=== PATIENT | female | born 1960 | race Caucasian/White ===

== ENCOUNTER → 2016-06-11 | Outpatient (CLI) | payer BC ==
[~2016-06-11] MED LIST: ADVAIR 100/28 DISKUS IH; ALLEGRA 180MG180 MG PO; ALLEGRA 60MG TA60 MG PO; ASPIRIN E.C. 8181 MG PO; BYSTOLIC20 MG PO; CATAPRES 0.1MG0.1 MG PO; EFFEXOR-XR150 MG PO; FORTAMET500 M1 PO; HYZAAR 25 MG-101 TAB PO; LIPITOR 40MG TA40 MG PO; MICARDIS80 MG PO; NEXIUM 40MG40 MG PO; PROVENTIL0.09 MG/A1 IH; PROZAC 20MG20 MG PO; RT ADVAIR 228 DISKUS IH; SAXENDA6 MG/ML SQ; SINGULAIR 110 MG/TAB PO; TOPROL XL100 MG PO; VALTREX1 GM PO
== END ==
LOC: BHSO 08:52
DX: Z01.818 Encounter for other preprocedural examination (principal)

== ENCOUNTER → 2016-07-03 | Outpatient (CLI) | payer BC ==
[~2016-07-03] VITALS: Ht 157.5 cm; Wt 95.0 kg
[2016-07-03 09:42] VITALS: BP 119/57; PULSE 84
[2016-07-03 10:04] VITALS: BP 119/57; PULSE 84
== END ==
LOC: LIGHT 09:40
DX: E88.81 Metabolic syndrome and other insulin resistance (principal); E11.65 Type 2 diabetes mellitus with hyperglycemia; I10 Essential (primary) hypertension; E78.4 Other hyperlipidemia; Z68.38 Body mass index [BMI] 38.0-38.9, adult

== ENCOUNTER → 2017-03-30 | Outpatient (CLI) | payer BC | LOC: MC.RAD 15:57 | DX: Z12.31 Encounter for screening mammogram for malignant neoplasm of breast (principal) ==

== ENCOUNTER → 2017-04-16 | Outpatient (CLI) | payer BC ==
[~2017-04-16] VITALS: Ht 157.5 cm; Wt 68.7 kg
[~2017-04-16] MED LIST changes: +B-121000 MCG PO; +D-2000 90 MG-201 TAB PO; +FLINTSTONES COM1 CT1 PO
[2017-04-16 16:09] VITALS: BP 116/80; PULSE 68
== END ==
LOC: LIGHT 13:53
DX: E88.81 Metabolic syndrome and other insulin resistance (principal); E11.65 Type 2 diabetes mellitus with hyperglycemia; I10 Essential (primary) hypertension; E78.5 Hyperlipidemia, unspecified; Z68.27 Body mass index [BMI] 27.0-27.9, adult; Z71.3 Dietary counseling and surveillance

== ENCOUNTER → 2017-06-25 | Outpatient (CLI) | payer BC ==
[~2017-06-25] VITALS: Ht 157.5 cm; Wt 67.6 kg
[~2017-06-25] MED LIST changes: +PROZAC 10MG10 MG PO; -PROZAC 20MG20 MG PO
[2017-06-25 12:02] VITALS: BP 118/80; PULSE 80
== END ==
LOC: LIGHT 11:56
DX: E88.81 Metabolic syndrome and other insulin resistance (principal); E11.65 Type 2 diabetes mellitus with hyperglycemia; I10 Essential (primary) hypertension; E78.5 Hyperlipidemia, unspecified; Z68.27 Body mass index [BMI] 27.0-27.9, adult; Z71.3 Dietary counseling and surveillance
CPT/HCPCS: G0463

== ENCOUNTER → 2017-07-23 | Outpatient (CLI) | payer BC ==
[~2017-07-23] VITALS: Ht 157.5 cm; Wt 68.5 kg
[2017-07-23 16:35] VITALS: BP 144/76; PULSE 76
== END ==
LOC: LIGHT 13:45
DX: E88.81 Metabolic syndrome and other insulin resistance (principal); E11.65 Type 2 diabetes mellitus with hyperglycemia; I10 Essential (primary) hypertension; E78.5 Hyperlipidemia, unspecified; Z68.27 Body mass index [BMI] 27.0-27.9, adult; Z71.3 Dietary counseling and surveillance
CPT/HCPCS: G0463

== ENCOUNTER → 2017-09-17 | Outpatient (CLI) | payer BC ==
[~2017-09-17] VITALS: Ht 157.5 cm; Wt 69.2 kg
[~2017-09-17] MED LIST changes: +GLUCAGON EMERGEN1 M1 SQ
[2017-09-17 16:02] VITALS: BP 130/78; PULSE 72
== END ==
LOC: LIGHT 15:41
DX: E88.81 Metabolic syndrome and other insulin resistance (principal); E11.65 Type 2 diabetes mellitus with hyperglycemia; I10 Essential (primary) hypertension; E78.5 Hyperlipidemia, unspecified; Z68.27 Body mass index [BMI] 27.0-27.9, adult; Z71.3 Dietary counseling and surveillance
CPT/HCPCS: G0463

== ENCOUNTER → 2018-04-01 | Outpatient (CLI) | payer BC | LOC: MC.RAD 16:20 | DX: Z12.31 Encounter for screening mammogram for malignant neoplasm of breast (principal) ==

== ENCOUNTER 2019-09-16 10:00 | Outpatient (RCR) | payer BC ==
[2019-09-02 10:36] VITALS: BP 154/79; PULSE 71; TEMP 97.2
[2019-09-02 11:08] VITALS: BP 134/72; PULSE 69; TEMP 98.1
[2019-09-02 11:45] VITALS: BP 134/79; PULSE 64; TEMP 97.7
[~2019-09-16] VITALS: Ht 157.5 cm; Wt 72.1 kg
[~2019-09-16 10:00] MED LIST changes: +B-12 500 MCG PO; -B-121000 MCG PO; -D-2000 90 MG-201 TAB PO; +FERROUSAL325 MG PO; +GLUCOSE PO; +LIPITOR20 MG PO; +PRECOSE50 MG PO; +VITAMIN D3400 I1 PO; +VTAMINC250TA PO
[2019-09-16 10:01] VITALS: BP 135/84; PULSE 75; TEMP 97.8
== END 2019-09-16 18:00 | disposition still patient (30) ==
LOC: EUO 10:00
DX: D50.9 Iron deficiency anemia, unspecified (principal)
CPT/HCPCS: J2916

== ENCOUNTER 2019-11-11 14:53 | Outpatient (CLI) | payer BC ==
[~2019-11-11] VITALS: Ht 157.5 cm; Wt 74.9 kg
[2019-11-11 16:51] VITALS: BP 143/91; PULSE 66; TEMP 98.3
== END 2019-11-11 19:05 | disposition home or self-care (01) ==
LOC: EUO 14:53
DX: D50.9 Iron deficiency anemia, unspecified (principal)
CPT/HCPCS: J2916

== ENCOUNTER → 2020-08-30 | Outpatient (CLI) | payer BC | LOC: MC.RAD 16:52 | DX: Z12.31 Encounter for screening mammogram for malignant neoplasm of breast (principal) ==

== ENCOUNTER 2021-12-23 05:59 | Day surgery (SDC) | payer BC ==
[~2021-12-23] VITALS: Ht 157.5 cm; Wt 75.9 kg
[2021-12-23] MEDS ORDERED: ALLEGRA 180MG180 MG PO (06:43)
[2021-12-23 06:44] VITALS: BP 157/84; PULSE 67; TEMP 97.2
[2021-12-23] MEDS ORDERED: COZAAR 50MG50 MG/TAB PO (06:44)
[2021-12-23] MEDS ORDERED: PROVENTIL0.09 MG/A1 IH (07:09)
[2021-12-23 09:16] VITALS: TEMP 98.3
[2021-12-23] MEDS ORDERED: CEPHALEXIN500 M1 PO (09:34)
[2021-12-23] MEDS ORDERED: ULTRAM ER100 MG PO (09:34)
[2021-12-23] MEDS ORDERED: ASPIRIN E.C. 8181 MG PO (09:34)
[2021-12-23 10:13] VITALS: BP 165/78; PULSE 68
--- NOTE | 2021-12-23 10:13 | NUR ---
PATIENT RETURNS TO ROOM 8 PER CART FROM PACU ACCOMPANIED [facility] GAS[facility] AND IS AWAKE AND ALERT. LICO WRAP DRESSING CLEAN AND DRY ON THE LEFT KNEE WITH ICE BAG IN PLACE. FOOT WARM TO TOUCH WITH CMS INTACT. TEMP 97.2. SATS 100% ON 2L PER NASAL CANNULA. FOOT OF CART ELEVATED. SIDERAILS UP X2 AND CALL LIGHT IN REACH. SPOUSE IN THE ROOM.
[2021-12-23 10:28] VITALS: BP 161/85; PULSE 60
--- NOTE | 2021-12-23 10:28 | NUR ---
TAKING ICE CHIPS AND EATING MUFFIN. DENIES NEED FOR PAIN MEDICATIONS OR NAUSEA.
[2021-12-23 10:43] VITALS: BP 165/88; PULSE 62
--- NOTE | 2021-12-23 10:43 | NUR ---
OXYGEN REMOVED AND SATS REMAIN 100% ON ROOM AIR.
[2021-12-23 10:58] VITALS: BP 157/91; PULSE 66
--- NOTE | 2021-12-23 10:58 | NUR ---
ROOM AIR SATS 96%. AWAKE AND STATES THAT SHE IS FEELING WELL AND CONTINUES TO DENY PAIN OR NAUSEA.
--- NOTE | 2021-12-23 11:04 | NUR ---
IV TO INT. ASSISTED UP TO THE BATHROOM AND GAIT IS STEADY. TOLERATES ACTIVITY WELL. ABLE TO VOID AND RETURNS TO ROOM. STATES THAT SHE IS READY TO GO HOME.
--- NOTE | 2021-12-23 11:21 | NUR ---
IV DISCONTINUED AND SITE IS FREE OF REDNESS OR SWELLING. PATIENT DRESSES SELF. LEFT KNEE DRESSING REMAINS CLEAN AND DRY.
--- NOTE | 2021-12-23 11:32 | NUR ---
DISMISSAL INSTRUCTIONS GIVEN AND VOICES UNDERSTANDING OF THESE. PROVIDED FOLLOW UP APPOINTMENT DATE AND TIME.
--- NOTE | 2021-12-23 11:37 | NUR ---
PATIENT DISMISSED TO HOME DRIVEN BY SPOUSE AND TAKEN TO THE FRONT DOOR PER WHEELCHAIR AND ASSISTED INTO VEHICLE WITH INSTRUCTIONS IN HAND.
== END 2021-12-23 11:37 | disposition home or self-care (01) ==
LOC: SDCO 05:59
DX: M23.204 Derangement of unspecified medial meniscus due to old tear or injury, left knee (principal); M17.12 Unilateral primary osteoarthritis, left knee
CPT/HCPCS: J0171; J0690; J1100; J1170; J2405; J2704; J3010; J7120

== ENCOUNTER → 2022-11-05 | Outpatient (CLI) | payer BC ==
[~2022-11-05] MED LIST changes: +CEPHALEXIN500 M1 PO; +COZAAR 50MG50 MG/TAB PO; +ULTRAM ER100 MG PO
== END ==
LOC: MC.RAD 14:34
DX: Z12.31 Encounter for screening mammogram for malignant neoplasm of breast (principal)

== ENCOUNTER 2023-03-02 09:45 | Outpatient (RCR) | payer BC ==
[~2023-03-02 09:45] MED LIST changes: +ASPIRIN 81M81 MG/TA2 PO; -B-12 500 MCG PO; +CELEBREX 200MG200 MG PO; -COZAAR 50MG50 MG/TAB PO; +COZAAR100 MG PO; +IRON CHEWS15 MG PO; +PROBIOTIC-PREB1 EACH PO; +ULTRAM 50MG TAB50 MG PO; +VITAMIN B COMPL1 T16 PO; +VITAMIN D250 MCG PO; -VITAMIN D3400 I1 PO; +ZOFRAN ODT4 MG PO
== END 2023-03-07 | disposition home or self-care (01) ==
LOC: WSPT
DX: M25.562 Pain in left knee (principal)

== ENCOUNTER → 2023-12-09 | Outpatient (CLI) | payer BC | LOC: MC.RAD 08:51 | DX: Z12.31 Encounter for screening mammogram for malignant neoplasm of breast (principal) ==